=== PATIENT | male | born 1955 | race Caucasian/White ===

== ENCOUNTER 2021-04-06 08:21 | Emergency (ER) | payer SELFPAY ==
[~2021-04-06] VITALS: Ht 170.2 cm; Wt 84.8 kg
[2021-04-06 08:39] VITALS: BP 121/71
--- NOTE | 2021-04-06 08:47 | NUR ---
SEEN AND EXAMINED BY .
--- NOTE | 2021-04-06 09:00 | NUR ---
G[employer] AT BEDSIDE FOR XRAY.
--- NOTE | 2021-04-06 10:09 | NUR ---
Patient discharged to home in stable condition. Written and verbal after care instructions given. Patient verbalizes understanding of instruction.
[2021-04-10] MEDS ORDERED: ASPIRIN 81 MG TAB.CHEW ONE (01:26)
[2021-04-10] MEDS ORDERED: FUROSEMIDE 20 MG/2 ML VIAL ONE (01:26)
== END 2021-04-06 10:10 | disposition home or self-care (01) ==
LOC: ER 08:26
DX: M79.604 Pain in right leg (principal)
CPT/HCPCS: 73590-TC